=== PATIENT | female | born 1955 | race Caucasian/White ===

== ENCOUNTER 2019-10-23 14:26 | Emergency (ER) | payer MEDICARE, MEDICAID, SELFPAY ==
--- NOTE | 2019-10-23 14:33 | DI.RAD.S_ITS ---
PROCEDURE: XR SHOULDER RT MIN 2V INDICATIONS: right shoulder pain TECHNIQUE: 3 views of the shoulder were acquired. COMPARISON: None. FINDINGS: Bones: No fractures or dislocations. No suspicious bony lesions. Visualized ribs appear intact. Soft tissues: No suspicious soft tissue calcifications. IMPRESSION: Right shoulder plain film within normal limits. If there is strong clinical suspicion for internal derangement of this joint, please consider a dedicated MRI for further evaluation (assuming that there is no contraindication to MRI). Dictated by: Abraham Jacob M.D. on 10/23/2019 at 13:58 Approved by: Abraham Jacob M.D. on 10/23/2019 at 13:58
[2019-10-23 14:34] VITALS: BP 143/64; PULSE 77; RESP 12; TEMP 36.8; O2SAT 95; BMI 22.3
--- NOTE | 2019-10-23 14:59 | ED_ITS ---
HPI - General Adult General Chief complaint: Extremity Injury, Upper Stated complaint: Suspects R arm dislocation Time Seen by Provider: 10/23/19 14:32 Source: patient Mode of arrival: Ambulatory Limitations: no limitations History of Present Illness HPI narrative: 64-year-old female here for evaluation of right shoulder injury. Patient states that prior to arrival she tripped over her 's foot falling forward and landing on an outstretched arm. Since that time she has had right shoulder pain. No right hand wrist or elbow pain. Has discomfort on the top in the back in the outside of the right shoulder. She did not hit her head. There was no loss of consciousness. Has not tried anything for the symptoms prior to arrival. Related Data Home Medications Medication Instructions Recorded Confirmed [SEIZURE MED] #0 02/16/07 Allergies Allergy/AdvReac Type Severity Reaction Status Date / Time morphine Allergy Verified 10/23/19 15:18 Penicillins Allergy Verified 10/23/19 15:18 SULFA (sulfonamide) Allergy Unknown Uncoded 10/23/19 15:18 Review of Systems Constitutional Constitutional: Denies fever(s) and Denies headache(s) ENT Ears, Nose, Mouth, and Throat: Denies headache(s) Cardiovascular Cardiovascular: Denies chest pain and Denies dyspnea Respiratory Respiratory: Denies dyspnea Gastrointestinal Gastrointestinal: Denies abdominal pain Musculoskeletal Musculoskeletal: Denies myalgias and Reports arthralgias (Right shoulder) Integumentary/Breasts Skin/Breast: Denies lesions and Denies rash Neurologic Neurologic: Denies behavioral changes and Denies headache(s) Psychiatric Psychiatric: Denies behavioral changes Hematologic/Lymphatic Hematologic/Lymphatic: Denies easy bleeding and Denies easy bruising Patient History Medical History Hypertension (Acute) Myocardial infarction (Acute) Seizures (Acute) TIA (transient ischemic attack) (Acute) Social History Smoking Status: Current every day smoker Smoking Status: Current every day smoker alcohol intake frequency: holidays/special occasions only Exam Initial Vital Signs Initial Vital Signs: Vital Signs Temperature 98.2 F 10/23/19 14:34 Pulse Rate 77 10/23/19 14:34 Respiratory Rate 12 10/23/19 14:34 Blood Pressure 143/64 H 10/23/19 14:34 Pulse Oximetry 95 10/23/19 14:34 Const General: cooperative, comfortable, well developed and well groomed Limitations: mental status not altered HENMT Head: normal to inspection and normocephalic Resp Effort & Inspection: normal respiratory effort Cardio Pulses: radial pulses present on the right Skin Lesions: no lesions Rashes: no rashes Neuro General: alert, awake and oriented x3 Cranial Nerves: CN's II-XI intact bilaterally Sensory Exam: no sensory deficits noted Extrem Other: Right hand unremarkable, right wrist unremarkable, right elbow unremarkable, patient has tenderness to palpation specifically anteriorly and laterally the right shoulder. She was able to abduct passively to just below 90? and forward flex however has quite a bit of discomfort with doing this. She cannot do it on her own. Scores Nexus Score for C-Spine Focal Neurologic deficit present: No Midline spinal tenderness present: No Altered level of conciousness present: No Intoxication present: No Distracting Injury Present: No Nexus Criteria for C-spine: 0 Course Orders Ordered: ED Orders 10/23/19 14:33 XR shoulder RT min 2V Stat 10/23/19 15:16 CT UE RT wo con Stat Vital Signs Vital signs: Vital Signs - 8 hr 10/23/19 14:34 10/23/19 15:52 Temperature 98.2 F 98.7 F Pulse Rate 77 69 Respiratory Rate 12 16 Blood Pressure 143/64 H Blood Pressure [Left Arm] 132/66 Pulse Oximetry 95 Medical Decision Making Imaging Data Extremity x-ray #1: Radiologist's Impression: [address] [address] XRay Report Signed Patient: Wilder Pang#: [id number] : 6Acct:[id number] Age/Sex: 64 / FDate of Service: 10/23/19 Loc: ED Accession Number: [id number] Procedure: XR shoulder RT min 2V Ordering Provider: Chris Maurice D.O. PROCEDURE: XR SHOULDER RT MIN 2V INDICATIONS: right shoulder pain TECHNIQUE: 3 views of the shoulder were acquired. COMPARISON: None. FINDINGS: Bones: No fractures or dislocations. No suspicious bony lesions. Visualized ribs appear intact. Soft tissues: No suspicious soft tissue calcifications. IMPRESSION: Right shoulder plain film within normal limits. If there is strong clinical suspicion for internal derangement of this joint, please consider a dedicated MRI for further evaluation (assuming that there is no contraindication to MRI). Dictated by: Abraham Jacob M.D. on 10/23/2019 at 13:58 Approved by: Abraham Jacob M.D. on 10/23/2019 at 13:58 CT shoulder: Radiologist's Impression: [address] [address] [address] Scan Report Signed Patient: Wilder Pang#: [id number] : 6Acct:[id number] Age/Sex: 64 / FDate of Service: 10/23/19 Loc: ED Accession Number: [id number] Procedure: CT UE RT wo con Ordering Provider: Chris Maurice D.O. PROCEDURE: CT UE RT WO CON INDICATIONS: Right shoulder CT for occult fracture TECHNIQUE: Noncontrast 1-1.5 mm thick sections acquired from the acromioclavicular joint to the inferior scapula, with coronal and sagittal reformatting. COMPARISON: [facility], CR, XR SHOULDER RT MIN 2V, 10/23/2019, 14:28. FINDINGS: Image quality: Diagnostic. Bones: No displaced fracture or dislocation is appreciated involving the osseous structures of the shoulder. No suspicious osseous lesions are identified. There are mild degenerative changes of the glenohumeral joint and mild to moderate degenerative changes of the acromio clavicular joint. Mild lateral acromial downsloping is identified. The remainder of the image osseous structures of the included shoulder are within normal limits. Soft tissues: No soft tissue masses or fluid collections are seen involving the right shoulder. There is no significant atrophy appreciated involving the rotator cuff muscles. Please note that the ligamentous, tendinous, and cartilaginous structures of the shoulder are not adequately characterized on CT. The portions of the right lung demonstrates centrilobular emphysema. IMPRESSION: 1. No acute fractures of the right shoulder. 2. Centrilobular emphysema of the right lung. Dictated by: Samm Beach M.D. on 10/23/2019 at 14:49 Approved by: Samm Beach M.D. on 10/23/2019 at 14:53 MDM Narrative Medical decision making narrative: Neurovascular intact, no fractures or dislocations on the shoulder however she did have significant discomfort with movement even passively on exam so CT scan was ordered. This shows no dislocations or fractures. I feel we can hold on any MRI for now. Will provider a sling for comfort however she was instructed to stay out of the sling as much as possible to prevent a frozen shoulder. Did discuss that if her symptoms do not improve in the next week or so she should contact her primary doctor about further evaluation of potential physical therapy or MRI. She expressed understanding and agreement. Discharge Plan Departure Patient Disposition: Home Clinical Impression: Injury of right shoulder Qualifiers: Encounter type: initial encounter Qualified Code(s): S49.91XA - Unspecified injury of right shoulder and upper arm, initial encounter Instructions: DI for Shoulder Pain Activity Restrictions/Additional Instructions: Use the sling for your comfort. Recommend that you are out of the sling as much as possible in order to prevent a frozen shoulder. Return to the emergency department for any new or worsening symptoms. Contact your primary provider for follow-up especially if your symptoms are not improving to discuss further workup to include up potential referral to see physical therapy or MRI. Prescriptions: No Action [SEIZURE MED] Qty: 0 RF: 0
--- NOTE | 2019-10-23 15:16 | DI.CT.S_ITS ---
PROCEDURE: CT UE RT WO CON INDICATIONS: Right shoulder CT for occult fracture TECHNIQUE: Noncontrast 1-1.5 mm thick sections acquired from the acromioclavicular joint to the inferior scapula, with coronal and sagittal reformatting. COMPARISON: [facility], CR, XR SHOULDER RT MIN 2V, 10/23/2019, 14:28. FINDINGS: Image quality: Diagnostic. Bones: No displaced fracture or dislocation is appreciated involving the osseous structures of the shoulder. No suspicious osseous lesions are identified. There are mild degenerative changes of the glenohumeral joint and mild to moderate degenerative changes of the acromio clavicular joint. Mild lateral acromial downsloping is identified. The remainder of the image osseous structures of the included shoulder are within normal limits. Soft tissues: No soft tissue masses or fluid collections are seen involving the right shoulder. There is no significant atrophy appreciated involving the rotator cuff muscles. Please note that the ligamentous, tendinous, and cartilaginous structures of the shoulder are not adequately characterized on CT. The portions of the right lung demonstrates centrilobular emphysema. IMPRESSION: 1. No acute fractures of the right shoulder. 2. Centrilobular emphysema of the right lung. Dictated by: Samm Beach M.D. on 10/23/2019 at 14:49 Approved by: Samm Beach M.D. on 10/23/2019 at 14:53
[2019-10-23 15:52] VITALS: BP 132/66; PULSE 69; RESP 16; TEMP 37.1
[2019-10-23 16:37] VITALS: BP 125/61; PULSE 61; RESP 16; O2SAT 97
== END 2019-10-23 16:43 | disposition home or self-care (01) ==
PROVIDERS: Emergency Provider Emergency Medicine
DX: S49.91XA Unspecified injury of right shoulder and upper arm, initial encounter (principal); W01.0XXA Fall on same level from slipping, tripping and stumbling without subsequent striking against object, initial encounter
CPT/HCPCS: 73030; 73200; 99283; 99284